=== PATIENT | female | born 1995 | race Caucasian/White ===

== ENCOUNTER 2017-02-12 01:16 | Emergency (ER) | payer BC ==
[2017-02-12] MEDS ORDERED: ONDANSETRON DISINTEGRATING 4 MG TAB PO ONE (01:33)
[2017-02-12] MEDS ORDERED: NS 1,000 ML IV ONE (01:48)
--- NOTE | 2017-02-12 01:49 | EDPHY ---
H & P Stated Complaint: Abdominal Pain/Nausea Time Seen by Provider: 02/12/17 01:34 HPI/ROS: Chief complaint: Abdominal pain, nausea, headache HPI: 21-year-old type 1 diabetic on insulin pump presenting complaining of onset this morning when she woke up of nausea, mild headache and some abdominal cramping. 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 She denies any diarrhea. No hematemesis. No fevers or chills. Blood sugar was 210 this morning. She does not have a history of celiac disease. ROS: 10 point Review of Systems is negative except as noted in the HPI. Past medical history: Diabetes Medications: Insulin Allergies: No known drug allergies Physical exam: Gen: Awake, Alert, No Distress HEENT: Nose: no rhinorrhea Eyes: PERRLA, EOMI Mouth: Moist mucosa Neck: Supple, no JVD Chest: nontender, lungs clear to auscultation Heart: S1, S2 normal, no murmur Abd: Soft, non-tender, no guarding Back: no CVA tenderness, no midline tenderness Ext: no edema, non-tender Skin: no rash Neuro: CN II-XII intact, Sensation grossly intact, Strength 5/5 in bilateral upper and lower extremities - Personal History Current Tetanus/Diphtheria Vaccine: Unsure Current Tetanus Diphtheria and Acellular Pertussis (TDAP): Unsure - Medical/Surgical History Hx Asthma: Yes Hx Chronic Respiratory Disease: No Hx Diabetes: Yes Hx Cardiac Disease: No Hx Renal Disease: No Hx Cirrhosis: No Hx Alcoholism: No Hx HIV/AIDS: No Hx Splenectomy or Spleen Trauma: No Other PMH: medical diabetes, asthma. surgery none - Social History Smoking Status: Never smoked Constitutional: Initial Vital Signs Temperature (C) 36.5 C 02/12/17 01:19 Heart Rate 92 02/12/17 01:19 Respiratory Rate 12 02/12/17 01:19 Blood Pressure 112/76 02/12/17 01:19 O2 Sat (%) 95 02/12/17 01:19 O2 Delivery Mode Room Air Allergies/Adverse Reactions: No Known Allergies Allergy (Unverified 10/27/14 17:10) Home Medications: Medication Instructions Recorded INSULIN REGULAR, HUMAN [Novolin R] 0 unit SQ .SS 02/13/11 Montelukast Sodium [Singulair] 5 mg PO DAILY 02/13/11 Metformin HCl [Metformin 1000 mg] 1,000 mg PO 10/27/14 Medical Decision Making ED Course/Re-evaluation: Patient is feeling improved. Abdomen is soft and nontender. She has had no further vomiting. Blood sugar is okay 156. She is not acidotic. CBC is normal. Will discharge with take-home pack of Zofran and instructions to follow up with her primary care physician, return for increasing abdominal pain uncontrolled nausea vomiting or difficulty controlling her blood sugar. - Data Points Laboratory Results: Laboratory Results 02/12/17 02:00 02/12/17 02:00 02/12/17 02/12/17 02/12/17 02:00 02:00 02:00 WBC 8.51 10^3/uL 10^3/uL (3.80-9.50) RBC 4.65 10^6/uL 10^6/uL (4.18-5.33) Hgb 14.1 g/dL g/dL (12.6-16.3) Hct 41.3 % % (38.0-47.0) MCV 88.8 fL fL (81.5-99.8) MCH 30.3 pg pg (27.9-34.1) MCHC 34.1 g/dL g/dL (32.4-36.7) RDW 11.9 % % (11.5-15.2) Plt Count 390 10^3/uL 10^3/uL (150-400) MPV 9.0 fL fL (8.7-11.7) Neut % (Auto) 66.4 % % (39.3-74.2) Lymph % (Auto) 24.3 % % (15.0-45.0) [place] % (Auto) 6.7 % % (4.5-13.0) Eos % (Auto) 1.9 % % (0.6-7.6) Baso % (Auto) 0.5 % % (0.3-1.7) Nucleat RBC Rel Count 0.0 % % (0.0-0.2) Absolute Neuts (auto) 5.65 10^3/uL 10^3/uL (1.70-6.50) Absolute Lymphs (auto) 2.07 10^3/uL 10^3/uL (1.00-3.00) Absolute Monos (auto) 0.57 10^3/uL 10^3/uL (0.30-0.80) Absolute Eos (auto) 0.16 10^3/uL 10^3/uL (0.03-0.40) Absolute Basos (auto) 0.04 10^3/uL 10^3/uL (0.02-0.10) Absolute Nucleated RBC 0.00 10^3/uL 10^3/uL (0-0.01) Immature Gran % 0.2 % % (0.0-1.1) Immature Gran # 0.02 10^3/uL 10^3/uL (0.00-0.10) Sodium 141 mEq/L mEq/L (134-144) Potassium 4.4 mEq/L mEq/L (3.5-5.2) Chloride 102 mEq/L mEq/L (97-110) Carbon Dioxide 27 mEq/l mEq/l (22-31) Anion Gap 12 mEq/L mEq/L (8-16) BUN 11 mg/dL mg/dL (7-23) Creatinine 0.6 mg/dL mg/dL (0.6-1.0) Estimated GFR > 60 Glucose 152 mg/dL H mg/dL (70-100) Calcium 9.6 mg/dL mg/dL (8.5-10.4) Beta HCG, Qual NEGATIVE Medications Given: Discontinued Medications Fentanyl (Sublimaze) 50 mcg IVP EDNOW ONE Stop: 02/12/17 02:28 Last Admin: 02/12/17 02:27 Dose: 50 mcg Sodium Chloride (Ns) 1,000 mls @ 0 mls/hr IV ONCE ONE PRN Reason: Wide Open Stop: 02/12/17 01:49 Last Admin: 02/12/17 02:04 Dose: 1,000 mls Ondansetron HCl (Zofran Odt) 4 mg PO EDNOW ONE Stop: 02/12/17 01:34 Last Admin: 02/12/17 01:36 Dose: 4 mg Departure - Departure Disposition: Home, Routine, Self-Care Clinical Impression: Nausea & vomiting, Abdominal pain Condition: Good Instructions: Acute Nausea and Vomiting (ED), Abdominal Pain (ED) Additional Instructions: return for increasing abdominal pain uncontrolled nausea vomiting or difficulty controlling her blood sugar. Follow up with primary care physician in 2-3 days if symptoms are not improving. Referrals: NOLBERTO MUÑOZ [Primary Care Provider] - As per Instructions
[2017-02-12] MEDS ORDERED: fentaNYL 100 MCG/2 ML INJ ONE (02:22)
[2017-02-12] MEDS ORDERED: fentaNYL 100 MCG/2 ML INJ IVP ONE (02:27)
[2017-02-12 02:47] LABS: % IMMATURE GRANULYOCYTES 0.2 % (0.0-1.1); ABSOLUTE IMMATURE GRANULOCYTES 0.02 10^3/uL (0.00-0.10); ADD DIFF? NO; ADD MORPH? NO; ADD SCAN? NO; ATYPICAL LYMPHOCYTE FLAG 10 (0-99); FRAGMENT RBC FLAG 0 (0-99); HEMATOCRIT 41.3 % (38.0-47.0); HEMOGLOBIN 14.1 g/dL (12.6-16.3); LEFT SHIFT FLG 0 (0-99); LIPEMIA HEMOLYSIS FLAG 90 (0-99); MEAN CELL HEMOGLOBIN 30.3 pg (27.9-34.1); MEAN CELL HEMOGLOBIN CONCENTR. 34.1 g/dL (32.4-36.7); MEAN CELL VOLUME 88.8 fL (81.5-99.8); PLATELET CLUMPS FLAG 10 (0-99); PLATELET COUNT 390 10^3/uL (150-400); RED BLOOD CELL COUNT 4.65 10^6/uL (4.18-5.33); RED CELL DISTRIBUTION WIDTH 11.9 % (11.5-15.2)
[2017-02-12 02:59] LABS: ANION GAP 12 mEq/L (8-16); CALCIUM 9.6 mg/dL (8.5-10.4); CARBON DIOXIDE 27 mEq/l (22-31); CHLORIDE 102 mEq/L (97-110); CREATININE 0.6 mg/dL (0.6-1.0); GLOMERULAR FILTRATION RATE > 60; GLUCOSE 152 mg/dL (70-100); POTASSIUM 4.4 mEq/L (3.5-5.2); SODIUM 141 mEq/L (134-144)
[2017-02-12] MEDS ORDERED: ONDANSETRON 4MG PREPACK#2 BTL TAKEHOME ONE (03:08)
[2017-02-12 03:20] VITALS: BP 113/67; PULSE 82; RESP 16; TEMP 98.2; O2SAT 94
== END 2017-02-12 03:19 | disposition home or self-care (01) ==
DX: R10.9 Unspecified abdominal pain (principal); R11.2 Nausea with vomiting, unspecified; E10.9 Type 1 diabetes mellitus without complications; J45.909 Unspecified asthma, uncomplicated; Z79.4 Long term (current) use of insulin
CPT/HCPCS: 96374; J3010

== ENCOUNTER 2017-02-20 21:20 | Emergency (ER) | payer BC ==
[2017-02-20 21:31] VITALS: RESP 16; TEMP 98.4
--- NOTE | 2017-02-20 22:33 | EDPHY ---
H & P Time Seen by Provider: 02/20/17 21:46 HPI/ROS: Chief complaint. Sore throat and growth behind left ear HPI. Patient presents with painful swelling behind the left ear for 1 day. Her mother thought this may be upper respiratory infection gave her Sudafed. Now the patient has had sore throat for 2 hours. No fever. No cough or shortness of breath. No abdominal pain. No rash. ROS Constitutional. no fever/chills, no weakness Eyes. no problems with vision ENT. Swelling behind left ear and sore throat Cardiovascular. no chest pain Respiratory. no shortness of breath, no cough Abdominal. no abdominal pain, no nausea/vomiting, no diarrhea . no problems urinating MS. no calf pain/swelling, no neck/back pain, no joint pain Skin. no rash Lymph. no swollen glands Neuro. no headache, no dizziness, no difficulty walking or with speech Past Medical/Surgical History: Past medical history significant for insulin-dependent diabetes, asthma Social History: Single, nonsmoker, no alcohol Smoking Status: Never smoked Physical Exam: General Appearance: Alert well-developed female mild distress vital signs are stable Eyes: Pupils equal and round no pallor or injection. ENT, tympanic membranes are normal. There is a 1 cm abscess behind the left ear consistent with sebaceous cyst. Pharynx is without injection or exudate. Mucous membranes are moist. No anterior cervical adenopathy Respiratory: There are no retractions, lungs are clear to auscultation. Cardiovascular: Regular rate and rhythm. Gastrointestinal: Abdomen is soft and nontender, no masses, bowel sounds normal. Neurological: Awake and alert, sensory and motor exams grossly normal. Skin: Warm and dry, no rashes. Musculoskeletal: Neck is supple nontender. Extremities symmetrical, full range of motion. Psychiatric: Patient is oriented X 3, there is no agitation. Constitutional: Initial Vital Signs Temperature (C) 36.9 C 02/20/17 21:26 Heart Rate 79 02/20/17 21:26 Respiratory Rate 16 02/20/17 21:26 Blood Pressure 129/80 H 02/20/17 21:26 O2 Sat (%) 97 02/20/17 21:26 O2 Delivery Mode Room Air Allergies/Adverse Reactions: No Known Allergies Allergy (Verified 02/20/17 21:30) Home Medications: Medication Instructions Recorded INSULIN REGULAR, HUMAN [Novolin R] 0 unit SQ .SS 02/13/11 Metformin HCl [Metformin 1000 mg] 1,000 mg PO 10/27/14 Sudafed PE 02/20/17 Sulfamethox/Tmp 800/160 mg 1 tab PO BID #14 tab 02/20/17 [Bactrim Ds] Medical Decision Making Procedures: Procedure incision and drainage--1% lidocaine with epinephrine is infiltrated into the abscess behind the left ear. Good anesthesia is obtained. Saline preparation. The abscess is incised and drained with a 11 blade. Moderate pus expressed. Loculations were broken up with hemostats probe. The cavity is irrigated. Patient tolerates the procedure well ED Course/Re-evaluation: Rapid strep screen is negative I-STAT shows blood sugar to be 150 Patient and I discussed treatment plan, criteria for return importance of follow -up and further evaluation. She expresses understanding and agreement Differential Diagnosis: I considered strep pharyngitis, viral syndrome. Patient has an abscess consistent with sebaceous cyst behind the left ear which is now been incised and drained. No evidence for mastoiditis - Data Points Laboratory Results: 02/20/17 02/20/17 02/20/17 Unknown 22:05 22:02 POC Hgb 15.3 gm/dL gm/dL (12.3-15.9) POC Hct 45 % % (35.5-47.5) POC Sodium 142 mEq/L mEq/L (134-144) POC Potassium 3.5 mEq/L mEq/L (3.3-5.0) POC Chloride 105 mEq/L mEq/L (96-108) POC BUN 9 mg/dL mg/dL (7-23) POC Creatinine 0.7 mg/dL mg/dL (0.6-1.2) POC Glucose 150 mg/dL H mg/dL (70-100) Group A Strep Screen NEGATIVE (NEGATIVE) Group A Strep DNA Pending Point of Care Test Results: 02/20/17 22:02 POC Sodium 142 POC Potassium 3.5 POC Chloride 105 POC BUN 9 POC Creatinine 0.7 POC Glucose 150 H Departure - Departure Disposition: Home, Routine, Self-Care Clinical Impression: Abscess Condition: Good Instructions: Abscess (ED) Additional Instructions: Warm moist compresses 2 to 3 times a day next 2 days. Bactrim as antibiotic. Return for worsening symptoms. Recheck in 2-3 days if not improving Referrals: NOLBERTO MUÑOZ [Primary Care Provider] - 2-3 days, if not improved Prescriptions: Sulfamethox/Tmp 800/160 mg [Bactrim Ds] 1 tab PO BID #14 tab
[2017-02-20] MEDS ORDERED: SULFAMETHOX/TMP 800/160 MG 1 TAB PO ONE (22:39)
[2017-02-20 22:57] VITALS: BP 130/78; PULSE 68; O2SAT 96
== END 2017-02-20 22:57 | disposition home or self-care (01) ==
PROC: 0H91XZZ Drainage of Face Skin, External Approach (ICD-10-PCS; principal; 2017-02-20)
DX: H66.002 Acute suppurative otitis media without spontaneous rupture of ear drum, left ear (principal); E11.9 Type 2 diabetes mellitus without complications; J45.909 Unspecified asthma, uncomplicated; Z79.4 Long term (current) use of insulin; Z79.84 Long term (current) use of oral hypoglycemic drugs
CPT/HCPCS: 82947-QW